=== PATIENT | female | born 1995 | race Caucasian/White ===

== ENCOUNTER 2016-08-01 18:07 | Emergency (ER) | payer OTHER ==
[~2016-08-01] VITALS: Ht 162.6 cm; Wt 61.6 kg
[~2016-08-01 18:07] MED LIST: ADDERALL30 MG PO; BIRTH CONTROL PO; NAPROSYN500 MG PO
[2016-08-01 21:14] LABS: ADD MIUA? NO; BILIRUBIN SMALL; BLOOD NEGATIVE; COLOR YELLOW ((YELLOW)); GLUCOSE (STRIP) NEGATIVE; KETONES >=80; LEUKOCYTES NEGATIVE; NITRITE NEGATIVE; PH, URINE 5.5 (5-8); PROTEIN (STRIP) 30; SPECIFIC GRAVITY 1.037 (1.000-1.030); UCUL ADDED? NO; UROBILINOGEN 0.2 MG/DL (0.2-1.0)
[2016-08-01 21:38] LABS: HEMATOCRIT 43.7 % (36.0-46.0); MCH 29.9 PG (29.0-34.0); MCV 85.5 FL (83-99); PLATELET COUNT 313 K/uL (156-360); RBC DIS.WIDTH-CV 12.8 % (11.8-14.6); RED BLOOD COUNT 5.11 M/uL (3.80-5.20); WHITE BLOOD COUNT 10.3 K/uL (4.1-10.2)
[2016-08-01 21:54] LABS: CHLORIDE 106 mEq/L (99-109); POTASSIUM 4.5 mEq/L (3.7-5.4); SODIUM 137 mEq/L (136-147)
[2016-08-01 21:56] LABS: GLUCOSE 92 mg/dL (70-99)
[2016-08-01 21:57] LABS: ANION GAP 14 MEQ/L (2-14)
[2016-08-01 21:59] LABS: GFR ESTIMATE (CALCULATED) > 59 mL/min/
[2016-08-01 22:00] LABS: UREA NITROGEN (BUN) 11 mg/dL (9-23)
[2016-08-01] MEDS ORDERED: PROMETHAZINE HC25 M1 PO (22:36)
[2016-08-01 22:43] VITALS: BP 125/69
== END 2016-08-01 22:44 | disposition home or self-care (01) ==
LOC: EME 18:07
PROVIDERS: Physician Assistant
DX: E86.0 Dehydration (principal); R11.2 Nausea with vomiting, unspecified; R19.7 Diarrhea, unspecified; F90.9 Attention-deficit hyperactivity disorder, unspecified type; J45.909 Unspecified asthma, uncomplicated
CPT/HCPCS: 80048; 81003; 85027; 99281; 99283; J2405

== ENCOUNTER 2016-09-27 09:06 | Emergency (ER) | payer OTHER ==
[~2016-09-27] VITALS: Ht 162.6 cm; Wt 65.7 kg
[~2016-09-27 09:06] MED LIST changes: +PROMETHAZINE HC25 M1 PO
[2016-09-27 09:47] LABS: HEMATOCRIT 38.6 % (36.0-46.0); MCH 28.9 PG (29.0-34.0); MCHC 32.4 G/DL (30.0-36.0); MCV 89.4 FL (83-99); MEAN PLAT.VOLUME 11.3 uM^3 (9.5-12.4); PLATELET COUNT 284 K/uL (156-360); RBC DIS.WIDTH-CV 12.9 % (11.8-14.6); RBC DIS.WIDTH-SD 42.5 % (39-53); RED BLOOD COUNT 4.32 M/uL (3.80-5.20)
[2016-09-27 09:58] LABS: ADD MIUA? YES; BILIRUBIN NEGATIVE; BLOOD MODERATE; COLOR YELLOW ((YELLOW)); GLUCOSE (STRIP) NEGATIVE; KETONES NEGATIVE; LEUKOCYTES NEGATIVE; NITRITE NEGATIVE; PROTEIN (STRIP) 30; SPECIFIC GRAVITY 1.019 (1.000-1.030); UROBILINOGEN 0.2 MG/DL (0.2-1.0)
[2016-09-27 10:01] LABS: CHLORIDE 108 mEq/L (99-109); POTASSIUM 4.1 mEq/L (3.7-5.4); SODIUM 140 mEq/L (136-147)
[2016-09-27 10:03] LABS: GLUCOSE 90 mg/dL (70-99)
[2016-09-27 10:04] LABS: ANION GAP 9 MEQ/L (2-14)
[2016-09-27 10:05] LABS: BACTERIA NONE SEEN /HPF; EPITHELIAL CELLS 1+ /HPF; HYALINE CASTS 0-5 /LPF; MUCUS TRACE /LPF; UCUL ADDED? NO; WHITE BLOOD CELLS 0-5 /HPF (0-5)
[2016-09-27 10:07] LABS: GFR ESTIMATE (CALCULATED) > 59 mL/min/
[2016-09-27 10:08] LABS: UREA NITROGEN (BUN) 10 mg/dL (9-23)
[2016-09-27 10:15] LABS: QUANTITATIVE HCG < 4.0 MIU/ML
[2016-09-27 12:10] VITALS: BP 112/71
== END 2016-09-27 12:11 | disposition left against medical advice (07) ==
LOC: EME 09:06
PROVIDERS: Emergency Medicine
DX: R10.2 Pelvic and perineal pain (principal); N93.8 Other specified abnormal uterine and vaginal bleeding; Z87.891 Personal history of nicotine dependence; J30.81 Allergic rhinitis due to animal (cat) (dog) hair and dander
CPT/HCPCS: 76856; 80048; 81003; 84702; 85027; 86900; 86901; 99281; 99284

== ENCOUNTER 2017-12-19 21:41 | Emergency (ER) | payer OTHER ==
[~2017-12-19] VITALS: Ht 162.6 cm; Wt 63.5 kg
[2017-12-19 21:44] VITALS: BP 137/80
[2017-12-19] MEDS ORDERED: MOTRIN800 MG PO (22:31)
== END 2017-12-19 22:55 | disposition home or self-care (01) ==
LOC: EME 21:41
DX: S93.401A Sprain of unspecified ligament of right ankle, initial encounter (principal); W17.89XA Other fall from one level to another, initial encounter; F17.200 Nicotine dependence, unspecified, uncomplicated
CPT/HCPCS: 73590; 73610; 99281; 99284

== ENCOUNTER 2018-01-07 21:49 | Emergency (ER) | payer OTHER ==
[~2018-01-07] VITALS: Ht 162.6 cm; Wt 64.8 kg
[~2018-01-07 21:49] MED LIST changes: +MOTRIN800 MG PO
[2018-01-07 23:10] LABS: HEMATOCRIT 37.8 % (36.0-46.0); HEMOGLOBIN 12.5 G/DL (11.9-15.5); MCH 30.7 PG (29.0-34.0); MCHC 33.1 G/DL (30.0-36.0); MCV 92.9 FL (83-99); RBC DIS.WIDTH-CV 12.9 % (11.8-14.6); RBC DIS.WIDTH-SD 43.9 % (39-53); RED BLOOD COUNT 4.07 M/uL (3.80-5.20); WHITE BLOOD COUNT 26.1 K/uL (4.1-10.2)
[2018-01-07 23:20] LABS: ALBUMIN 4.1 g/dL (3.2-4.8); CHLORIDE 108 mEq/L (99-109); POTASSIUM 4.6 mEq/L (3.7-5.4); SODIUM 142 mEq/L (136-147)
[2018-01-07 23:22] LABS: GLUCOSE 103 mg/dL (70-99); TOTAL PROTEIN 6.7 g/dL (6.4-8.3)
[2018-01-07 23:24] LABS: TOTAL BILIRUBIN 0.4 mg/dL (0.0-1.0)
[2018-01-07 23:25] LABS: SERUM ETHYL ALCOHOL < 10 mg/dL
[2018-01-07 23:26] LABS: ALKALINE PHOSPHATASE 27 IU/L (3-129); CREATININE 1.1 mg/dL (0.6-1.3); GFR ESTIMATE (CALCULATED) > 59 mL/min/
[2018-01-07 23:27] LABS: UREA NITROGEN (BUN) 13 mg/dL (9-23)
[2018-01-07 23:28] LABS: AST (GOT) 22 IU/L (2-34)
[2018-01-07 23:29] LABS: ALT (GPT) 18 IU/L (3-49)
[2018-01-08 00:02] LABS: AMPHETAMINE NEGATIVE (500 ng/mL); BARBITURATES NEGATIVE (200 ng/mL); BENZODIAZEPINES NEGATIVE (150 ng/mL); BUPRENORPHINE NEGATIVE (10 ng/mL); COCAINE NEGATIVE (150 ng/mL); METHADONE NEGATIVE (200 ng/mL); METHAMPHETAMINE NEGATIVE (500 ng/mL); OPIATES (MORPHINE) PRESUMPTIVE POSITIVE (100 ng/mL); OXYCODONE NEGATIVE (100 ng/mL); PHENCYCLIDINE NEGATIVE (25 ng/mL); PROPOXYPHENE NEGATIVE (300 ng/mL); THC CANNABINOIDS PRESUMPTIVE POSITIVE (50 ng/mL); TRICYCLIC ANTIDEPRESSANTS NEGATIVE (300 ng/mL)
[2018-01-08] MEDS ORDERED: NARCAN4 MG NS (00:31)
[2018-01-08 00:55] VITALS: BP 86/53
[2018-01-08 03:06] LABS: PLAT.SUFFICIENCY ADEQUATE; PLATELET COUNT 260 K/uL (156-360)
== END 2018-01-08 01:00 | disposition home or self-care (01) ==
LOC: EME → EDBD 21:49 → EME 21:49
PROVIDERS: Emergency Medicine
DX: T40.1X1A Poisoning by heroin, accidental (unintentional), initial encounter (principal); J45.901 Unspecified asthma with (acute) exacerbation; R00.0 Tachycardia, unspecified; F17.200 Nicotine dependence, unspecified, uncomplicated
CPT/HCPCS: 71045; 80053; 84999; 85027; 93005; 94640; 99281; 99284; G0480